=== PATIENT | male | born 1970 | race Caucasian/White ===

== ENCOUNTER → 2016-08-01 | Outpatient (CLI) | payer BC ==
[~2016-08-01] MED LIST: NS 100 ML IV 100 ML IV ONE
--- NOTE | 2016-08-01 12:31 | CT ---
HISTORY: Diverticulitis large intestine, left lower quadrant pain. Study: CT abdomen and pelvis with contrast Comparison: None available. Technique: Multiple axial images of the abdomen and pelvis were obtained from the lung bases to the pubic symph ysis after the administration of IV contrast. Dose reduction techniques including Automated Exposur e Control (AEC) and adjustment of mA and kV were utilized. Findings: Bibasilar scarring versus atelectasis. Otherwise, the visualized portions of the lung bases are unre markable. Several subcentimeter too small to characterize hypodense lesions within the left liver lo be. Otherwise, the liver, spleen, pancreas, kidneys, and adrenal glands are unremarkable in their CT appearance. The gallbladder is unremarkable in its CT appearance. Marked soft tissue stranding and bowel wall thickening to 14 mm about a focal area of the descending colon with associated diverticu lar disease. This represents acute diverticulitis. No free air to suggest perforation or focal fluid collection to suggest abscess formation. Remaining large and small bowel appear normal. The visuali zed appendix is normal. A small amount of dependent free fluid is seen within the pelvis. The urinar y bladder and prostate are grossly unremarkable. The bony structures are grossly intact. IMPRESSION: Constellation of findings representing acute diverticulitis of the descending colon. No free air to suggest perforation or focal fluid collection to suggest abscess formation. Recommend di rect visualization after patient has recovered from current episode to exclude underlying neoplasm. Reported By:
== END ==
LOC: RAD 10:36
PROVIDERS: ATTEND Internal Medicine
DX: K57.33 Diverticulitis of large intestine without perforation or abscess with bleeding (principal); R10.32 Left lower quadrant pain
CPT/HCPCS: 74177; A4222

== ENCOUNTER 2018-11-17 08:33 | Observation (INO) ==
[2018-11-17] MEDS ORDERED: STERILE WATER IRRIGATION IR ONE (13:40)
[2018-11-17] MEDS ORDERED: CIPRO IV 400 MG PREMIX* 400 MG/200 ML IV.SOLN. IV SCH (15:24)
[2018-11-17] MEDS ORDERED: DULCOLAX TAB EC 5 MG PO ONE ×2 (15:24→21:00)
[2018-11-17] MEDS ORDERED: NULYTELY or GO-LYTELY PO SCH (15:24)
[2018-11-17] MEDS ORDERED: MIRALAX POWDER (255 GRAMS BTL) PO NR (15:24)
[2018-11-17] MEDS: NS 1000 ML 1,000 ML IV SCH ×2 (16:00→23:15)
[2018-11-17 16:08] LABS: BASOPHILS # (AUTO) 0.1 X10^3/uL (0.0-0.1); BASOPHILS % (AUTO) 0.9 % (0.2-1.0); EOSINOPHILS # (AUTO) 0.1 x10^3/uL (0.0-0.2); EOSINOPHILS % (AUTO) 2.1 % (0.9-2.9); HEMATOCRIT 41.1 % (42.0-54.0); HEMOGLOBIN 14.5 g/dL (13.5-18.0); LYMPHOCYTES # (AUTO) 1.9 X10^3/uL (1.3-2.9); LYMPHOCYTES % (AUTO) 31.4 % (21.0-51.0); MEAN CORPUSCULAR HEMOGLOBIN 30.6 pg (27.0-34.0); MEAN CORPUSCULAR HGB CONC 35.3 g/dL (33.0-35.0); MEAN CORPUSCULAR VOLUME 86.7 fL (80.0-100.0); MEAN PLATELET VOLUME 8.3 fL (7.4-11.0); MONOCYTES # (AUTO) 0.6 x10^3/uL (0.3-0.8); NEUTROPHILS # (AUTO) 3.3 x10^3/uL (2.2-4.8); NEUTROPHILS % (AUTO) 55.6 % (42.0-75.0); PLATELET COUNT 173 X10^3/uL (150.0-450.0); RED BLOOD COUNT 4.74 X10^6/uL (4.7-6.0); RED CELL DISTRIBUTION WIDTH 14.1 % (11.6-16.5)
[2018-11-17 16:19] LABS: ALANINE AMINOTRANSFERASE 32 Units/L (12-78); ALBUMIN 3.8 g/dL (3.4-5.0); ALKALINE PHOSPHATASE 52 Units/L (46-116); ASPARTATE AMINO TRANSFERASE 25 Units/L (15-37); BLOOD UREA NITROGEN 12 mg/dL (7-18); CALCIUM 8.5 mg/dL (8.5-10.1); CARBON DIOXIDE 26.8 mmol/L (21-32); CHLORIDE 104 mmol/L (98-107); CREATININE 0.96 mg/dL (0.70-1.30); SODIUM 140 mmol/L (136-145); TOTAL PROTEIN 6.7 g/dL (6.4-8.2); eGFR NON BLACK RACES > 60 (>60)
[2018-11-17 16:29] VITALS: BMI 31.6
[2018-11-18] MEDS: NS 1000 ML 1,000 ML IV SCH ×2 (01:50→07:51)
[2018-11-18 02:25] LABS: CRYPTOSPORIDIUM PARVUM ANTIGEN NEGATIVE (NEGATIVE); GIARDIA LAMBLIA ANTIGEN NEGATIVE (NEGATIVE)
[2018-11-18 05:46] LABS: BASOPHILS % (AUTO) 0.8 % (0.2-1.0); EOSINOPHILS # (AUTO) 0.2 x10^3/uL (0.0-0.2); EOSINOPHILS % (AUTO) 3.4 % (0.9-2.9); HEMATOCRIT 44.7 % (42.0-54.0); HEMOGLOBIN 15.5 g/dL (13.5-18.0); LYMPHOCYTES # (AUTO) 1.8 X10^3/uL (1.3-2.9); LYMPHOCYTES % (AUTO) 33.8 % (21.0-51.0); MEAN CORPUSCULAR HEMOGLOBIN 30.5 pg (27.0-34.0); MEAN CORPUSCULAR HGB CONC 34.6 g/dL (33.0-35.0); MEAN CORPUSCULAR VOLUME 88.1 fL (80.0-100.0); MEAN PLATELET VOLUME 8.3 fL (7.4-11.0); MONOCYTES # (AUTO) 0.5 x10^3/uL (0.3-0.8); MONOCYTES % (AUTO) 9.1 % (0.0-13.0); NEUTROPHILS # (AUTO) 2.8 x10^3/uL (2.2-4.8); NEUTROPHILS % (AUTO) 52.9 % (42.0-75.0); PLATELET COUNT 171 X10^3/uL (150.0-450.0); RED BLOOD COUNT 5.07 X10^6/uL (4.7-6.0); RED CELL DISTRIBUTION WIDTH 14.1 % (11.6-16.5); WHITE BLOOD COUNT 5.3 X10^3/uL (3.6-10.0)
[2018-11-18 06:02] LABS: ALANINE AMINOTRANSFERASE 36 Units/L (12-78); ALBUMIN 3.7 g/dL (3.4-5.0); ALKALINE PHOSPHATASE 54 Units/L (46-116); ASPARTATE AMINO TRANSFERASE 28 Units/L (15-37); BLOOD UREA NITROGEN 9 mg/dL (7-18); CALCIUM 8.3 mg/dL (8.5-10.1); CARBON DIOXIDE 27.5 mmol/L (21-32); CHLORIDE 107 mmol/L (98-107); CREATININE 0.93 mg/dL (0.70-1.30); SODIUM 142 mmol/L (136-145); TOTAL PROTEIN 6.8 g/dL (6.4-8.2); eGFR NON BLACK RACES > 60 (>60)
--- NOTE | 2018-11-18 08:23 | DR.H&P ---
H&P - History & Physical for Day of: H&P Date: 11/17/18 - Chief Complaint Chief Complaint: BILATERAL LOWER QUADRANT PAIN, BLOOD IN STOOL, FOOD INTOLERANCE - History of Present Illness History of Present Illness: IS A 47 YEAR OLD PATIENT OF OURS WHO PRESENTED TO THE HOSPITAL A DIRECT ADMISSION DUE TO COMPLAINTS OF BILATERAL LOWER QUADRANT PAIN, BLOOD IN STOOL, AND FOOD INTOLERANCE. SYMPTOMS STARTED APPROXIMATELY TWO WEEKS AGO AND HAS PROGRESSIVELY GOTTEN WORSE. HE HAS BEEN TAKING NEXIUM 40MG PO BID AT HOME WITHOUT IMPROVEMENT IN SYMPTOMS. AN OUTPATIENT EGD WAS DONE ON 11/11/18 AND REVEALED: EROSIVE DISTAL ESOPHAGITIS, EROSIVE GASTRITIS, AND DUODENITIS. ON ARRIVAL TO THE HOSPITAL, VITALS WERE 98.1-57-18-99%-131/91. LABS WERE OBTAINED. HE IS HEMODYNAMICALLY STABLE. STOOL STUDIES WERE ORDERED. WE SPOKE WITH AND HE HAS AGREED FOR A COLONOSCOPY TOMORROW. WE WILL START BOWEL PREP TODAY. WE WILL ALSO START NORMAL SALINE AT 125ML/HR AND CIPRO 400MG IV Q12H. OTHERWISE, WE WILL FOLLOW UP WITH AM LABS AND CONTINUE TO MONITOR. - Past Medical History Additional Medical History: EROSIVE DISTAL ESOPHAGITIS, EROSIVE GASTRITIS, AND DUODENITIS - Past Surgical History Surgical History: Cholecystectomy - Social History Does patient currently use any type of tobacco product: No Have you used tobacco products in the last 12 months: No Type of Tobacco Use: None Does any household member use tobacco: No Alcohol Use: Occasionally Drug Use: None - Medications Home Medications: No Known Drug Allergies Allergy (Verified 01/19/18 07:22) CONTINUE taking the following medications esomeprazole magnesium [Nexium] 40 mg PO BID 11/17/18 [History] - Review of Systems Constitutional: Fever Eyes: No Symptoms Reported ENT: No Symptoms Reported Respiratory: No Symptoms Reported Cardiovascular: No Symptoms Reported Gastrointestinal: Nausea, Abdominal Pain, Hematochezia Genitourinary: No Symptoms Reported Musculoskeletal: No Symptoms Reported Skin: No Symptoms Reported - Physical Exam Vital Signs: Temperature 98.1 F Pulse Rate [Left Brachial] 62 Pulse Rate [Right Brachial] 59 Respiratory Rate 18 Blood Pressure [Left Arm] 138/80 Blood Pressure [Right Arm] 126/78 Blood Pressure 121/81 O2 Sat by Pulse Oximetry 96 Oriented: Normal Eyes: Normal Ear: Normal Nose: Normal Throat: Normal Respiratory: Clear Throughout Cardiovascular: Normal : Normal Auscultation: Bowel Sounds: Normal Palpation: Normal Tenderness: Normal Skin: Normal Musculoskeletal: Normal Psychiatric: Normal Mood Description: Calm Affect: Normal Speech Pattern: Clear - Assessment/Plan (1) Abdominal pain Qualifiers: Abdominal location: generalized Qualified Code(s): R10.84 - Generalized abdominal pain Status: Acute Plan: ADMIT, NORMAL SALINE AT 125ML/HR, CIPRO 400MG IV Q12H, IV PEPCID, IV PROTONIX, GI CONSULT, STOOL STUDIES (2) Food intolerance in adult Status: Acute Plan: FOOD ALLERGY PANEL (3) Hematochezia Status: Acute Plan: GI CONSULT, STOOL STUDIES - Allergies Allergies/Adverse Reactions: Allergies Allergy/AdvReac Type Severity Reaction Status Date / Time No Known Drug Allergies Allergy Verified 01/19/18 07:22
[2018-11-18] MEDS ORDERED: PROTONIX INJ 40 MG VIAL IVP SCH (09:00)
[2018-11-18] MEDS ORDERED: CIPRO IV 400 MG PREMIX* 400 MG/200 ML IV.SOLN. IV SCH (09:00)
[2018-11-18] MEDS ORDERED: PEPCID 20 MG IV PREMIX* 20 MG/50 ML BAG IV SCH (09:00)
[2018-11-18] MEDS ORDERED: DIPRIVAN VIAL 20 ML ONE ×2 (09:51→10:04)
[2018-11-18] MEDS ORDERED: DIPRIVAN VIAL ONE (10:29)
[2018-11-18 11:36] VITALS: BP 132/82
== END 2018-11-18 12:45 | disposition home or self-care (01) ==
LOC: MED/SURG
PROVIDERS: ADMIT Internal Medicine; ATTEND Internal Medicine
DX: R10.32 Left lower quadrant pain; K63.5 Polyp of colon; K90.49 Malabsorption due to intolerance, not elsewhere classified; K57.30 Diverticulosis of large intestine without perforation or abscess without bleeding; K64.8 Other hemorrhoids; R50.9 Fever, unspecified; R10.31 Right lower quadrant pain
CPT/HCPCS: 36415; 80053; 82270; 82785; 83630; 85025; 86003; 87045; 87328; 87329; 87338; 87427; 87449; 87493; 87899; 96367; A4216; A4217; A4222; C9113; S0028; G0378; J0744; J2704; J7030